=== PATIENT | female | born 1985 | race African-American/Black ===

== ENCOUNTER 2024-05-06 12:16 | Outpatient (CLI) | payer OTHER, MEDICAID, SELFPAY ==
--- NOTE | ~2024-05-06 | US_ITS ---
EXAM: RENAL ULTRASOUND HISTORY: N28.9 - Disorder of kidney and ureter, unspecified COMPARISON: None FINDINGS: RIGHT KIDNEY: 10.5 x 3.8 x 5.4 cm. The parenchyma of the right kidney is unremarkable. No hydronephrosis or bulky renal calculi. LEFT KIDNEY: 11.6 x 3.9 x 4.5 cm No hydronephrosis or renal calculi. The parenchyma of the left kidney is unremarkable on the submitted images. BLADDER: Minimally distended, without wall thickening. IMPRESSION: Unremarkable sonographic evaluation of the bilateral kidneys on the submitted images. If clinical suspicion persists, cross-sectional imaging (contrast-enhanced CT or MRI examination of t he abdomen and pelvis with renal mass protocol) is suggested for further evaluation. Reviewed, dictated and finalized at location A. MARKETING IMPRESSION: Unremarkable sonographic evaluation of the bilateral kidneys on the submitted i mages. If clinical suspicion persists, cross-sectional imaging (contrast-enhanced CT o r MRI examination of the abdomen and pelvis with renal mass protocol) is sugges terry for further evaluation.
== END 2024-05-06 12:17 | disposition home or self-care (01) ==
LOC: MICIMG 12:17
PROVIDERS: PCP Nurse Practitioner Family; Visit Provider Nurse Practitioner Family
DX: N28.9 Disorder of kidney and ureter, unspecified (principal)
CPT/HCPCS: 76775

== ENCOUNTER 2024-08-13 10:23 | Outpatient (CLI) | payer OTHER, MEDICAID, SELFPAY ==
--- NOTE | ~2024-08-13 | XR_ITS ---
Clinical Indication: Cough PA and lateral views of the chest: Comparison: None Findings: The lungs are clear, without evidence of focal consolidation or pleural effusion. Cardiome diastinal silhouette is within normal limits. Bones and soft tissues are unremarkable. Impression: Normal chest. Reviewed, dictated and finalized at location . Impression: Normal chest.
== END 2024-08-13 10:24 | disposition home or self-care (01) ==
LOC: MICIMG 10:26
PROVIDERS: PCP Nurse Practitioner Family; Visit Provider Nurse Practitioner Family
DX: R05.3 Chronic cough (principal)
CPT/HCPCS: 71046

== ENCOUNTER 2024-08-19 12:43 | Outpatient (CLI) | payer OTHER, MEDICAID, SELFPAY ==
--- NOTE | ~2024-08-19 | MM_ITS ---
EXAMINATION: MM screening ritchie BI w genesis HISTORY: Screening TECHNIQUE: Craniocaudal and mediolateral oblique 3-D tomosynthesis images were obtained and synthetic 2-D images were generated. CAD analysis was submitted and interpreted. COMPARISON: No prior mammogram is available for comparison at this institution. BREAST PARENCHYMAL COMPOSITION: Dense: The breasts are extremely dense, which lowers the sensitivity of mammography. FINDINGS: There is no evidence of suspicious mass, calcification, or architectural distortion to sugg est malignancy in either breast. There has been no suspicious interval change. IMPRESSION: 1. No mammographic evidence of malignancy. 2. Recommend routine screening mammography in one year. BI-RADS Category 1: Negative Reviewed, dictated and finalized at location A.
== END 2024-08-19 12:44 | disposition home or self-care (01) ==
PROVIDERS: PCP Obstetrics & Gynecology; Visit Provider Nurse Practitioner Family
DX: Z12.31 Encounter for screening mammogram for malignant neoplasm of breast (principal)
CPT/HCPCS: 77063; 77067

== ENCOUNTER 2024-11-19 12:57 | Outpatient (CLI) | payer OTHER, MEDICAID, SELFPAY ==
--- NOTE | ~2024-11-19 | MR_ITS ---
MRI of the cervical spine Clinical History: Neck pain Technique: Axial T2-weighted and gradient images, and sagittal T1-weighted, T2-weighted, and STIR wendy ges were acquired. Findings: There is reversal normal cervical lordosis. No fracture or subluxation seen. No suspicious bone marrow signal abnormality. At C2-C3, there is no disc bulge or herniation. No spinal canal stenosis, cord compression, or neural foraminal narrowing. At C3-C4, there is no significant disc bulge or herniation. No spinal canal stenosis, cord compressio n, or neural foraminal narrowing. At C4-C5, there is disc osteophyte complex with mild flattening the ventral cord and minimal canal st enosis. Neural foramina are preserved. At C5-C6, there is minimal disc osteophyte complex. There is mild canal stenosis without ynes cord c ompression. Probable minimal right neural foraminal narrowing. Left neural foramen preserved. At C6-C7, there is disc osteophyte complex and/or disc extrusion at the left foraminal left paracentr al region, probably impinging the exiting left-sided nerve root. There is mild canal stenosis without ynes cord compression. Right neural foramen preserved. No abnormal signal seen in the spinal cord. Paravertebral soft tissues are unremarkable otherwise. Impression: Disc extrusion and/or large disc osteophyte complex at the left foraminal to left paracentral region at C6-C7, probably impinging the exiting left-sided nerve root at this level. Mild flattening of the ventral cord and minimal canal stenosis at C4-C5 related to disc osteophyte co mplex. Mild right neural foraminal narrowing at C5-C6. Reversal of the normal cervical lordosis. Reviewed, dictated and finalized at [facility]. Impression: Disc extrusion and/or large disc osteophyte complex at the left foraminal to le ft paracentral region at C6-C7, probably impinging the exiting left-sided nerve root at this level. Mild flattening of the ventral cord and minimal canal stenosis at C4-C5 related to disc osteophyte complex. Mild right neural foraminal narrowing at C5-C6. Reversal of the normal cervical lordosis.
== END 2024-11-19 12:58 | disposition home or self-care (01) ==
LOC: MICIMG 12:58
PROVIDERS: PCP Nurse Practitioner Family; Visit Provider Nurse Practitioner Family
DX: M54.12 Radiculopathy, cervical region (principal); M50.20 Other cervical disc displacement, unspecified cervical region
CPT/HCPCS: 72141

== ENCOUNTER 2024-12-29 13:56 | Outpatient (CLI) | payer OTHER, MEDICAID, SELFPAY ==
--- OUTSIDE RECORDS SUMMARY | 2024-12-29 14:13 | XMS_ITS | Encounter Summary ---
Author Organization [facility] Address [facility] [place] [address] Care Team Providers Care Air Twister Winder Name Role Phone Opal Rutledge MD Primary Care Provider [phone] Mara Encarnacion NP Primary Care Provider [phone] Encounter Details Date Type Department Care Team (Late st Contact Info) Description 06/22/2017 Abstract [facility] CONVERSION [address] [place] [address] , Generic Conversion, Social History Tobacco Use Types Packs/Day Years Used Date Smoking Tobacco: Never Assessed Comments Unknown Sex and Gender Information Value Date Recorded Sex Assigned at Not on file Legal Sex Female 7:14 PM CDT Gender Identity Not on file Sexual Orientation Not on file documented as of this encounter Plan of Treatment Not on file documented as of this encounter Visit Diagnoses Not on filedocumented in this encounter Additional Health Concerns Infection Onset Date Last Indicated Resolved Time COVID-19 Rule Out 04/01/2023 04/01/2023 04/01/2023 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
--- OUTSIDE RECORDS SUMMARY | 2024-12-29 14:13 | XMS_ITS | Encounter Summary ---
Author Organization [facility] Address [address] [place] [address] Care Team Providers Care Exterior Interior Specialist Name Role Phone Opal Rutledge MD Primary Care Provider [phone] Abraham Pandya DO Unavailable [phone] Reason for Visit * Reason Onset Date Comments Appointment 09/24/2018 General 09/26/2018 1st attempt to r /o triage General 09/24/2018 2nd attempt to R /O tirage for ACS General 10/03/2018 3rd attempt to R /O triage for ACS Encounter Details Date Type Department Care Team (Late st Contact Info) Description 09/24/2018 Telephone [facility] Internal Medicine [address] [address] Opal Rutledge MD [address] [place] [address] Appointment; General (1st attempt to r/o triage); General (2nd attempt to R/O tirage for ACS); General (3rd attempt to R/O triage for ACS) Social History Tobacco Use Types Packs/Day Years Used Date Smoking Tobacco: Every Day Cigarettes 0.5 15 Smokeless Tobacco: Never Comments:Doesn't want anythi ng to help her quit. 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 Answer Date of Assessment Author No 07/07/2016 6:56 PM Mey Walker RN * Is person blind or have serious difficulty seeing? Answer Date of Assessment Author No 07/07/2016 6:56 PM Mey Walker RN * Does person have serious difficulty walking/climbing stairs? Answer Date of Assessment Author No 07/07/2016 6:56 PM Mey Walker RN * Does person have difficulty dressing/bathing? Answer Date of Assessment Author No 07/07/2016 6:56 PM Mey Walker RN * Does person have difficulty doing errands alone? Answer Date of Assessment Author No 07/07/2016 6:56 PM Mey Walker RN documented as of this encounter Mental Status * Does person have difficulty concentrating/remembering/making decisions? Answer Entry Date Author No 07/07/2016 6:56 PM Mey Walker RN documented in this encounter Miscellaneous Notes * Telephone Encounter - Nisha Rodriguez - 10/03/2018 2:30 PM CDT 3rd??attempt??to contact pt and r/o triage/ offer ACS visit per urinary frequency protocol and unable to reach at this time. ? Left message @ [phone]??with affiliation and contact number, , no pertient patientinformation left on voicemail. ? Provided closing statement on voicemail.If anything new develops,if anything gets worse or if you become increasingly concerned for any reason, please seek out immediate medical Attention. ? Chito Smith message Pt Mee Jiang ? Pt is complaining of Dark cloudy urine. Pt also states that she is unable to eat anything and keep it down but clear liquids. Thank you very much Shedavee * Telephone Encounter - Nisha Rodriguez - 09/29/2018 11:27 AM CDT 2nd attempt to contact pt and r/o triage/ offer ACS visit per urinary frequency protocol and unableto reach at this time. ? Left message @ [phone]??with affiliation and contact number, , no pertient patientinformation left on voicemail. ? Will re attempt at a later time. Provided closing statement on voicemail.If anything new develops,if anything gets worse or if you become increasingly concerned for any reason, please seek out immediate medical Attention. ?? Chito [employer] message Pt Mee Jiang ? Pt is complaining of Dark cloudy urine. Pt also states that she is unable to eat anything and keep it down but clear liquids. Thank you very much Shelisatte * Telephone Encounter - Mai Sanchez - 09/26/2018 11:53 AM CDT 1st attempt to contact pt and r/o triage/ offer ACS visit per urinary frequency protocol and unableto reach at this time. ?? Left message @ [phone] with affiliation and contact number, , no pertient patient information left on voicemail. ?? Will re attempt at a later time. Chito Luis message Pt Mee Jiang ? Pt is complaining of Dark cloudy urine. Pt also states that she is unable to eat anything and keep it down but clear liquids. Thank you very much Shevette * Telephone Encounter - Karen Clayton - 09/25/2018 2:56 PM CDT 1st Attempt Called the patient and left a message to contact the scheduling department at [phone] * Telephone Encounter - Chito Smith - 09/24/2018 4:23 PM CDT Pt Mee Jiang Pt is complaining of Dark cloudy urine. Pt also states that she is unable to eat anything and keep it down but clear liquids. Thank you very much Chito documented in this encounter Plan of Treatment Not on file documented as of this encounter Visit Diagnoses Not on filedocumented in this encounter Care Teams Exterior Interior Specialist Relationship Specialty Start Date End Date Opal Rutledge MD PCP - General Internal Medicine 04/11/16 Abraham Pandya DO [address] [place] [id number] Resident - PCP Internal Medicine 08/05/17 documented as of this encounter
--- OUTSIDE RECORDS SUMMARY | 2024-12-29 14:13 | XMS_ITS | Encounter Summary ---
Author Organization [facility] Address [address] [facility] [place] [address] Care Team Providers Care Scouring Train Operator Chief Name Role Phone Opal Rutledge MD Primary Care Provider Abraham Pandya DO Unavailable [phone] Reason for Visit * Reason Onset Date Comments Discharge Vaginal 05/15/2019 Encounter Details Date Type Department Care Team (Late st Contact Info) Description 05/15/2019 Telephone [facility] Internal Medicine [address] [facility] [address] [place] [address] Opal Rutledge MD [address] [facility] [place] [phone] Discharge Vaginal Social History Tobacco Use Types Packs/Day Years Used Date Smoking Tobacco: Every Day Cigarettes 1 15 Smokeless Tobacco: Never Comments:Doesn't want anythi ng to help her quit. 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 Answer Date of Assessment Author No 07/07/2016 6:56 PM Mey Walker RN * Is person blind or have serious difficulty seeing? Answer Date of Assessment Author No 07/07/2016 6:56 PM Mey Walekr RN * Does person have serious difficulty [...] encounter Miscellaneous Notes * Telephone Encounter - Qamar Banegas - 05/15/2019 11:07 AM CST Pt called to request that the provider call her in a prescription for a bacterial infection. Callerreports she is experiencing a vaginal discharge, whitish looking in color, foul odor, denies itching or burning with urination. [place] recommended the pt be seen in AC, pt agreed but disconnected the call before being able to be transferred to scheduling department Message routed to provider for review SS REGISTRAR documented in this encounter Plan of Treatment Not on file documented as of this encounter Goals Goal Patient Goal Type Associated Problems Recent Progress Patient-Stated? Author Depression Lifestyle No Opal Rutledge MD documented as of this encounter Visit Diagnoses Not on filedocumented in this encounter Care Teams Scouring Train Operator Chief Relationship Specialty Start Date End Date Opal Rutledge MD PCP - General Internal Medicine 04/11/16 Abraham Pandya DO [address] [place] [address] Resident - PCP Internal Medicine 08/05/17 documented as of this encounter
--- OUTSIDE RECORDS SUMMARY | 2024-12-29 14:13 | XMS_ITS | Clinical Summary ---
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 Gender Identity Not on file Sexual Orientation Not on file Plan of Treatment Health Maintenance Due Date Last Done Comments Hepatitis C Virus (HCV) Screening 1984 TdaP Immunization 1984 Hepatitis B Immunization (1 of 3 - 19+ 3-dose series) 2003 Pap Smear 2005 Human Papillomavirus (HPV) Immunization (1 - 3-dose SCDM series) 2011 Cervical Cancer Screening (CCS) 2014 HPV/Cotest 2014 SARS-COV-2 Immunization ( season) 2023 11/20/2020, 10/21/2020 Influenza Immunization (#1) 2024 Respiratory Syncytial Virus (RSV) Immunization (Adult) (1 - 1-dose 75+ series) 2059 DTaP/Tdap/Td Immunization Discontinued 1991, 01/21/1991, 07/08/1990 Meningococcal Immunization (ACWY) Aged Out No longer eligible based on patient's age to complete this topic Pneumococcal Immunization Combined Aged Out No longer eligible based on patient's age to complete this topic Rotavirus Immunization Aged Out No lo nger eligible based on patient's age to complete this topic
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
--- OUTSIDE RECORDS SUMMARY | 2024-12-29 14:13 | XMS_ITS | Clinical Summary ---
Author Organization [facility] Address [facility] [place] [address] Care Team Providers Care Testing Director Name Role Phone Mara Encarnacion NP Primary Care Provider [phone] Allergies No known active allergies Medications ondansetron (ZOFRAN-ODT) 4 MG disintegrating tablet Take 1 tablet (4 mg total) by mouth every 8 (eight) hours as needed for Nausea. 20 tablet 3 Active Active Problems No known active problems Family History Medical History Relation Comments Cancer Father Diabetes Father Hypertension Father Stroke Father Heart Disease Mother Hypertension Mother Relation Status Comments Father Mother Alive Social History Tobacco Use Types Packs/Day Years Used Date Smoking Tobacco: Former Cigarettes 1 17 0 08/07/2005 - 08/07/2022 Smokeless Tobacco: Never Tobacco Cessation:Counseling Given: Not Answered Alcohol Use Standard Drinks/Week Comments Yes 0 (1 standard drink = 0.6 oz pur e alcohol) SOCIALLY Comments No Sex and Gender Information Value Date Recorded Sex Assigned at Not on file Legal Sex Female 7:14 PM CDT Gender Identity Not on file Sexual Orientation Not on file Last Filed Vital Signs Vital Sign Reading Time Taken Comments Blood Pressure 91/58 04/01/2023 10:20 AM FINANCIAL REPORTING CONSULTANT Pulse 81 04/01/2023 9:30 AM FINANCIAL REPORTING CONSULTANT Temperature 36.9 C (98.5 F) 04/01/2023 9:30 AM FINANCIAL REPORTING CONSULTANT Respiratory Rate 16 04/01/2023 9:30 AM FINANCIAL REPORTING CONSULTANT Oxygen Saturation 96% 04/01/2023 10:20 AM FINANCIAL REPORTING CONSULTANT Inhaled Oxygen Concentration - - Weight 54.4 kg (120 lb) 04/01/2023 6:38 AM FINANCIAL REPORTING CONSULTANT Height 160 cm (5' 3) 04/01/2023 6:38 AM FINANCIAL REPORTING CONSULTANT Body Mass Index 21.26 04/01/2023 6:38 AM FINANCIAL REPORTING CONSULTANT Plan of Treatment Health Maintenance Due Date Last Done Comments Cervical Cancer Screening Pap Smear (Age 30 to 64) Every 3 Years 1984 Annual Physical 1987 Hepatitis C 2002 Hepatitis B Vaccines (1 of 3 - 19+ 3-dose series) 2003 HPV Vaccines (1 - 3-dose SCDM series) 2011 Cervical Cancer Screening Pap with HPV Testing (Age 30 to 64) Every 5 Years 2014 Cervical Cancer Screening with HPV 2014 Mammogram Screening 2024 COVID-19 Vaccine (3 - season) 2024 11/20/2020, 10/21/2020 DTaP, Tdap and Td Vaccines (4 - Td or Tdap) 05/19/2026 05/19/2016, 04/15/1991, 01/21/1991, Additional history exists Meningococcal B Vaccine Aged Out No l onger eligible based on patient's age to complete this topic Meningococcal Vaccine Aged Out No stefani maynor eligible based on patient's age to complete this topic Pneumococcal Vaccine: Pediatrics (0 to 5 Years) and At-Risk Patients (6 to 49 Years) Aged Out No longer eligible based on patient's age to complete this topic RSV Immunizations Under 20 Months Aged Out No longer eligible based on patient's age to complete this topic Insurance [address] [place] Care Teams Testing Director Relationship Specialty Start Date End Date Mara Encarnacion NP [address] [place] [address] PCP - General Nurse Practitioner Family 04/01/23
--- OUTSIDE RECORDS SUMMARY | 2024-12-29 14:13 | XMS_ITS | Clinical Summary ---
Author Organization [facility] [employer] Address [address] [place] [address] Care Team Providers Care Credit Risk Manager Name Role Phone Opal Rutledge MD Primary Care Provider [phone] Abraham Pandya DO Unavailable [phone] Source Comments [facility],non-owned Affiliates and Associated Physician Practices is amultiple site organization consisting of ambulatory clinics and hospital sitesin [place] and [place]. This disclosure is being madepursuant to the Care Everywhere program and may not contain all information available regarding this patient. Last updated 17.[facility] Allergies No known active allergies Medications * Be aware that medications may not be up to date on this document. Alwaysverify current medications with the patient. Multiple Vitamins-Calcium (ONE-A-DAY WOMENS FORMULA PO) Active Vit-Fe Fumarate-FA ( PLUS) 27-1 MG tablet Take 1 tablet by mouth once daily 30 tablet 2 8 Active Additional Information Patient not taking.Reported on 01/04/2020 albuterol HFA (PROVENTIL;MARIELLE ZEN;PROAIR) 108 (90 Base) MCG/ACT inhalerIndicatio ns:Cough,Broncho spasm Inhale 2 puffs by mouth every 4 hours as needed for Shortness of Breath, Wheezing or Cough 1 Inhaler 9 Active Additional Information Patient not taking.Reported on 04/27/2020 citalopram (CELEXA) 40 MG tabletIndication s:Depression, unspecified depression type Take 1 tablet by mouth once daily 30 tablet 3 0 Active Additional Information Patient not taking.Reported on 04/27/2020 metroNIDAZOLE vaginal (METROGEL - VAGINAL) 0.75 % vaginal gelIndications:B V (bacterial vaginosis) Insert 1 applicator into the vagina at bedtime 70 g 0 Active Additional Information Patient not taking.Reported on 04/27/2020 vitamin D, ergocalciferol, (DRISDOL) 1.25 MG (71126 UT) capsule Take 1 (one) capsule by mouth every 7 days 12 capsule 1 Active Additional Information Patient not taking.Reported on 01/11/2021 meclizine (ANTIVERT) 25 MG tabletIndication s:Dizziness Take 1 (one) tablet by mouth 2 times daily 90 tablet 1 1 Active Additional Information Patient not taking.Reported on 02/07/2021 Active Problems Problem Noted Date Diagnosed Date Lower abdominal pain 10/06/2018 Pain of upper abdomen 10/06/2018 Depression 10/06/2018 Sickle cell trait 04/23/2016 Tobacco abuse 10/27/2015 Multiple nevi 10/27/2015 Ptyalism Late-onset lactose intolerance Resolved Problems Problem Noted Date Diagnosed Date Resolved Date UTI (urinary tract infection) 10/06/2018 10/20/2018 Vasa previa 04/23/2016 11/04/2017 Overview (06/17/2016): See 06/13 ultrasound report for color flow mapping of the vessels. Velamentous insertion of umbilical cord 04/23/2016 11/04/2017 Placental abnormality in second trimester 04/23/2016 11/04/2017 Placenta previa without hemo rrhage, antepartum 04/06/2016 11/04/2017 UTI in 11/04/2017 uterine contractions in second trimester, antepartum 11/04/2017 Maternal iron deficiency ane priscila affecting , antepartum 11/04/2017 Funic presentation 8 Non-intractable vomiting with nausea 11/04/2017 Unspecified Escherichia coli (E. coli) as the cause of diseases classified elsewhere 0 11/04/2017 Placenta previa 11/04/2017 Anemia in 11/05/19 18 state, incidental 0 11/04/2017 Immunizations Immunization Administration Dates Next Due DTP 04/15/1991,01/21/1991,07/08/1990 MMR 09/09/1991,01/21/1991 POLIO OPV 01/21/1991,07/08/1990 TDAP (7yrs+) 05/19/2016 Family History Medical History Relation Name Comments Sickle Cell Anemia Brother 4/6 broth ers have sickle cell disease Diabetes - Type 2 Father Cancer - Colon Maternal Grandfather Cancer - Lung Maternal Grandfather Cancer - Bladder Maternal Grandmother Hypertension Mother Relation Name Status Comments Brother Father Maternal Grandfather Maternal Grandmother Mother Social History Tobacco Use Types Packs/Day Years Used Date Smoking Tobacco: Every Day Cigarettes 1 15 Smokeless Tobacco: Never Tobacco Cessation:Ready to Q uit: Yes; Counseling Given: Yes Comments:Doesn't want anything to help her quit. Alcohol Use Standard Drinks/Week Comments Yes 0 (1 standard drink = 0.6 oz pur e alcohol) bimonthly Comments No Sex and Gender Information Value Date Recorded Sex Assigned at Not on file Legal Sex Female 5:37 AM MOBILE HOME LABORER Gender Identity Not on file Sexual Orientation Not on file Last Filed Vital Signs Vital Sign Reading Time Taken Comments Blood Pressure 110/74 03/14/2021 4:25 PM MOBILE HOME LABORER Pulse 85 03/14/2021 4:25 PM MOBILE HOME LABORER Temperature 36.6 C (97.9 F) 02/07/2021 10:08 AM CDT Respiratory Rate 18 10/06/2018 4:02 PM CDT Oxygen Saturation 97% 02/07/2021 10:08 AM CDT Inhaled Oxygen Concentration - - Weight 55.8 kg (123 lb) 03/14/2021 4:25 PM MOBILE HOME LABORER Height 160 cm (5' 3) 03/14/2021 4:25 PM MOBILE HOME LABORER Body Mass Index 21.79 03/14/2021 4:25 PM MOBILE HOME LABORER Plan of Treatment Health Maintenance Due Date Last Done Comments LIPID TESTING 1984 MAMMOGRAM 1984 HIV SCREENING 1999 HEPATITIS B VACCINE (1 of 3 - 19+ 3-dose series) 2003 PNEUMOCOCCAL VACCINE (1 of 2 - PCV) 2003 HPV VACCINE (1 - 3-dose SCDM series) 2011 PAP SMEAR 10/13/2019 10/12/2016 DEPRESSION SCREENING 04/08/2024 COVID-19 VACCINE (3 - 2024- season) 2024 11/20/2020, 10/21/2020 INFLUENZA VACCINE (#1) 2024 DTAP/TDAP/TD VACCINES (4 - Td or Tdap) 05/19/2026 05/19/2016, 04/15/1991, 01/21/1991, Additional history exists ZOSTER VACCINE (1 of 2) 2034 HEPATITIS C SCREENING Completed 05/02/2020 HIB VACCINE Aged Out No longer eligi ble based on patient's age to complete this topic MENINGOCOCCAL (Group B) VACCINE SHARED DECISION-MAKING Aged Out No longer eligible based on patient's age to complete this topic MENINGOCOCCAL GROUPS A/C/Y/W VACCINE Aged Out No longer eligible based on patient's age to complete this topic Goals Goal Patient Goal Type Associated Problems Recent Progress Patient-Stated? Author Depression Lifestyle No Opal Rutledge MD Procedures Procedure Name Priority Date/Time Associated Diagnosis Comments HEPATITIS C AB W/RFLX TO HCV RNA QN PCR 05/02/2020 1:03 PM MOBILE HOME LABORER PAP THINPREP Routine 10/12/2016 12:00 AM CDT from Last 3 Months or Most Recently Relevant to Health Maintenance Results * HEPATITIS C AB W/RFLX TO HCV RNA QN PCR (05/02/2020 1:03 PM MOBILE HOME LABORER) Hepatitis C Antibody NON-REACTI VE NON-REACT DIAMANTE QUEST Signal to Cut-Off 0.01 <1.00 QUEST Comment: HCV antibody was non-reactive. There is no laboratory evidence of HCV infection. In most cases, no further action is required. However, if recent HCV exposure is suspected, a test for HCV RNA (test code 26194) is suggested. For additional information please refer to http://education.Lightswitch/faq/RTN19x1 (This link is being provided for informational/ educational purposes only.) Test Performed at: [facility] [id number] [facility] [place] [address] ELIZABETH LEVY DO,MPH 05/02/2020 1:03 PM MOBILE HOME LABORER 05/02/2020 1:06 PM MOBILE HOME LABORER us Opal Rutledge MD LAB - CHEMISTRY ORDERABLES Final Result [facility] [address] [place] [address] * PAP THINPREP (10/12/2016 12:00 AM CDT) Pap [id number]-[id number] ded Liquid-Based Accession No: [id number] Specimen:Cervical ThinPrep Slides:1 SPECIMEN ADEQUACY: SATISFACTORY FOR EVALUATION - Endocervical / Transformation Zone Component Present INTERPRETATION: NEGATIVE FOR INTRAEPITHELIAL LESION OR MALIGNANCY OTHER FINDINGS: - Predominance of coccobacilli consistent with a shift in vaginal laura Interpretation performed by Ricky MICHAUD(ASCP). Electronically signed 10/23/2016 [facility] ([place]) Cervical swab (specimen) PART OF UTERINE CERVIX / Unknown 10/12/2016 10/23/2016 9:11 AM CDT us Edd Sy APRN-ASSOCIATE LOAN OFFICER LAB - PATHOLOGY/CYTOL OGY ORDERABLES Final Result [facility] ([place]) from Last 3 Months or Most Recently Relevant to Health Maintenance Insurance [facility] Advance Directives * Full Code (Latest Code Status on File) Date Activated Date Inactivated Comments 07/03/2016 2:43 PM 07/07/2016 7:39 PM * Full Code Date Activated Date Inactivated Comments 04/23/2016 1:32 PM 07/03/2016 2:43 PM * Full Code Date Activated Date Inactivated Comments 04/17/2016 12:43 PM 04/17/2016 3:17 PM Care Teams Credit Risk Manager Relationship Specialty Start Date End Date Opal Rutledge MD PCP - General Internal Medicine 04/11/16 Abraham Pandya DO [address] [place] [id number] Resident - PCP Internal Medicine 08/05/17
--- NOTE | 2024-12-29 14:40 | ECG_ITS ---
Test Date: 2024-12-29 14:58:22 Measurements Intervals [place] Rate: 82 P: 31 MI: 138 QRS: 62 QRSD: 69 T: 46 QT: 341 QTc: 399 Interpretive Statements SINUS RHYTHM WARNING: DATA QUALITY MAY AFFECT INTERPRETATION No previous ECG available for comparison Electronically Signed On 12-29-2024 17:14:55 CDT by Jamarcus Ghosh M.D.
[2024-12-29 15:09] LABS: Add Urine Microscopic? NO; Appearance Urine Clear (Clear); Glucose Urine UA Negative (Negative); Hematocrit 39.3 % (37.0-47.0); Hemoglobin 13.2 g/dL (12.0-15.0); Leukocyte Esterase Ur Negative LEU/UL (Negative); Mean Corpuscular HGB Conc 33.6 g/dl (32-36); Mean Corpuscular Hemoglobin 31.9 pg (26-34); Mean Corpuscular Volume 94.9 fl (80-100); Nitrate Urine Negative (Negative); Platelet Count Result 229 k/mm3 (150-375); Red Blood Count 4.14 M/mm3 (4.2-5.4); Specific Grav Ur 1.027 (1.001-1.035); White Blood Count 7.5 K/mm3 (4.5-10.0)
[2024-12-29 15:19] LABS: Anion Gap 9 mmol/L (4-12); Blood Urea Nitrogen 18 mg/dL (7-17); Calcium 9.1 mg/dL (8.4-10.2); Carbon Dioxide 25 mmol/L (22-30); Chloride 103 mmol/L (98-107); Estimated Glomerular Filt Rate > 60; Glucose 80 mg/dL (65-110); Potassium 4.3 mmol/L (3.4-5.0); Sodium 137 mmol/L (137-145)
[2024-12-29 15:23] LABS: INR 1.0; Prothrombin Time 13.0 Seconds (11.1-14.7)
[2024-12-29 15:24] LABS: Partial Thromboplastin Time 26.2 Seconds (22.3-36.8)
== END 2024-12-29 13:57 | disposition home or self-care (01) ==
LOC: ANHSURGERY 14:01
PROVIDERS: PCP Nurse Practitioner Family; Visit Provider Neurological Surgery
DX: Z01.818 Encounter for other preprocedural examination (principal); M54.12 Radiculopathy, cervical region; M50.90 Cervical disc disorder, unspecified, unspecified cervical region; Z87.891 Personal history of nicotine dependence
CPT/HCPCS: 36415; 80048; 80307; 81003; 85027; 85610; 85730; 93005

== ENCOUNTER 2024-12-30 12:24 | Outpatient (CLI) | payer OTHER, MEDICAID, SELFPAY ==
--- NOTE | ~2024-12-30 | XR_ITS ---
XR cervical spine 4-5V Indication: Radiculopathy, cervical region; SURGERY Comparison: None Findings: No fracture, no subluxation with flexion-extension. Moderate loss of disc height C4-5 C5-6 and C6-7. Soft tissues unremarkable Impression: No acute abnormality. Reviewed, dictated and finalized at location A. Impression: No acute abnormality.
== END 2024-12-30 12:25 | disposition home or self-care (01) ==
LOC: MICIMG 12:26
PROVIDERS: PCP Nurse Practitioner Family; Visit Provider Neurological Surgery
DX: M54.12 Radiculopathy, cervical region (principal)
CPT/HCPCS: 72050